=== PATIENT | male | born 1975 | race Caucasian/White ===

== ENCOUNTER 2019-02-02 11:13 | Emergency (ER) | payer MEDICAID ==
[~2019-02-02] VITALS: Ht 175.3 cm; Wt 78.0 kg
[2019-02-02 11:22] VITALS: BP 115/77; PULSE 97; RESP 24; Ht 175.3 cm; Wt 78.0 kg
--- NOTE | 2019-02-02 12:11 | ERD ---
ER Documentation Chief Complaint Chief Complaint right toe nail pain ( ingrown) HPI 43-year-old male presents complaint of pain to his right toe. Patient states that the pain starts after he is been standing for long time and he thinks he has an ingrown toenail. Patient denies any current pain. Patient denies any infections, edema, erythema, fevers, numbness, impaired range of motion. ROS All systems reviewed and are negative except as per history of present illness. Allergies Allergies: Coded Allergies: No Known Allergy (Unverified , 02/02/19) PMhx/Soc Medical and Surgical Hx: pt denies Medical Hx, pt denies Surgical Hx Hx Alcohol Use: No Hx Substance Use: No Hx Tobacco Use: No Smoking Status: Former smoker FmHx Family History: No diabetes, No coronary disease, No other Physical Exam Vitals Vital Signs Date Temp Pulse Resp B/P (MAP) Pulse Ox O2 O2 Flow FiO2 Time Delivery Rate 02/02/19 97.5 97 24 115/77 97 11:22 (90) Physical Exam Const: No acute distress Head: Atraumatic Eyes: Normal Conjunctiva ENT: Normal External Ears, Nose and Mouth. Neck: Full range of motion. No meningismus. Resp: Clear to auscultation bilaterally Cardio: Regular rate and rhythm, no murmurs Abd: Soft, non tender, non distended. Normal bowel sounds Skin: No petechiae or rashes Back: No midline or flank tenderness Ext: No cyanosis, or edema. Toes are nonerythematous or edematous no signs of infection. No tenderness palpation. Neur: Awake and alert Psych: Normal Mood and Affect Procedures/MDM MDM: Patient's presentation is consistent with possible early ingrown toenail. Advised patient that we could remove the tunnel in the ER but he might be better served using home remedies. Patient stated he did not want to wait for toenail removal as he was in a [place]. Patient was given instructions for home remedies and advised to return if the pain got worse or if there are any signs of infection. At this point time I have low suspicion for deep space infection, cellulitis, or any emergent condition. At this time, patient is stable for discharge and outpatient management. I have instructed the patient to follow-up with his/her primary care physician in 1-2 days. I have discussed with the patient the possibility of needing to see a specialist for further workup and imaging studies if symptoms persist. I have instructed the patient to promptly return to the ER for any new or worsening symptoms including but not limited to increased pain, fever, nausea, vomiting, weakness or LOC. The patient and/or family expressed understanding of and agr eement with this plan. All questions were answered. Home care instructions were provided. DISCLAIMER: Inadvertent spelling and grammatical errors are likely due to EHR/dictation software use and do not reflect on the overall quality of patient care. Also, please note that the electronic time recorded on this note does not necessarily reflect the actual time of the patient encounter. Departure Diagnosis: Primary Impression: Ingrown toenail Condition: Stable Patient Instructions: Understanding Ingrown Toenails, Ingrown Toenail, No Infect ([facility]) Referrals: [facility] YOU HAVE RECEIVED A MEDICAL SCREENING EXAM AND THE RESULTS INDICATE THAT YOU DO NOT HAVE A CONDITION THAT REQUIRES URGENT TREATMENT IN THE EMERGENCY DEPARTMENT. FURTHER EVALUATION AND TREATMENT OF YOUR CONDITION CAN WAIT UNTIL YOU ARE SEEN IN YOUR DOCTORS OFFICE WITHIN THE NEXT 1-2 DAYS. IT IS YOUR RESPONSIBILITY TO MAKE AN APPOINTMENT FOR FOLOW-UP CARE. IF YOU HAVE A PRIMARY DOCTOR --you should call your primary doctor and schedule an appointment IF YOU DO NOT HAVE A PRIMARY DOCTOR YOU CAN CALL OUR PHYSICIAN REFERRAL HOTLINE AT IF YOU CAN NOT AFFORD TO SEE A PHYSICIAN YOU CAN CHOSE FROM THE FOLLOWING [facility] [id number] [facility]. [facility] [address] [facility]. [facility] [address] [facility] [facility] [address] [facility]. [facility] [address] [facility]. [facility]. [address] Additional Instructions: FOLLOW UP WITH YOUR PRIMARY CARE PHYSICIAN TOMORROW.Return to this facility if you are not improving as expected. GENEVA PRITCHETT Feb 02, 2019 12:11
== END 2019-02-02 12:28 | disposition home or self-care (01) ==
LOC: FTE 11:13
DX: L60.0 Ingrowing nail (principal); Z87.891 Personal history of nicotine dependence
CPT/HCPCS: 99282